=== PATIENT | male | born 1930 | race Caucasian/White ===

== ENCOUNTER 2018-08-08 07:59 | Inpatient (IN) | payer MEDICARE, MEDICAID ==
[~2018-08-08] VITALS: Ht 170.2 cm; Wt 98.9 kg
[~2018-08-08 07:59] MED LIST: AMI2 PO; APIX5TAB PO; ATOR10TA69 PO; BENA10TA10; ESCI10TA PO; FERR-43 PO; HYDR-523 PO; INSU100I19 SQ; INSU100V3 SQ; LEVO50TA8 PO; MULT-1146 PO
[2018-08-08] MEDS ORDERED: IPRATROPIUM BROMIDE (0.02%) 0.5MG/2.5ML NEB HHN STA (08:11)
[2018-08-08] MEDS ORDERED: ALBUTEROL (0.083%) 2.5MG/3ML NEB HHN STA (08:11)
[2018-08-08] MEDS ORDERED: MAGNESIUM 2 G PREMIX 50 ML IV STA (08:11)
[2018-08-08] MEDS ORDERED: METHYLPREDNISOLONE SOD SUCC 125 MG/2 ML VIAL IV STA (08:11)
[2018-08-08] MEDS ORDERED: PIPERACILLIN/TAZ 3.375G PREMIX 50 ML IV ONE (08:30)
[2018-08-08] MEDS ORDERED: VANCOMYCIN 1 G PREMIX 200 ML IV ONE (08:30)
[2018-08-08 08:45] LABS: BASOPHILS % 0.6 % (0.0-2.0); EOSINOPHILS % 3.2 % (0.0-5.0); HEMATOCRIT. 36.7 % (42.0-52.0); LYMPHOCYTES % 15.4 % (20.0-50.0); MEAN CORPUSCULAR HEMOGLOBIN 31.5 pg (28.0-32.0); MEAN CORPUSCULAR VOLUME 96.4 fL (80.0-94.0); MEAN PLATELET VOLUME 10.2 fl (7.4-10.4); MONOCYTES % 10.3 % (2.0-8.0); NEUTROPHILS % 70.5 % (40.0-76.0); PLATELET 385 x1000/uL (130-400); RED BLOOD CELL COUNT 3.81 mill/uL (4.7-6.1); RED CELL DISTRIBUTION WIDTH 13.7 % (11.6-14.6)
[2018-08-08 08:46] LABS: CHLORIDE 106 mEq/L (98-107)
[2018-08-08 08:58] LABS: D-DIMER 4.91 mg/L FEU (<0.50); PROTHROMBIN TIME 9.8 sec (9.1-11.1)
[2018-08-08] MEDS ORDERED: NITROGLYCERIN OINT 1GM/INCH UDPKT TD ONE (09:15)
[2018-08-08] MEDS ORDERED: FUROSEMIDE 40MG/4ML VIAL IVP ONE (09:15)
[2018-08-08 09:18] LABS: CLARITY URINE CLEAR (CLEAR); COLOR URINE YELLOW (YELLOW); KETONES URINE TRACE (NEGATIVE); LEUKOCYTE ESTERASE URINE NEGATIVE (NEGATIVE); NITRITE URINE NEGATIVE (NEGATIVE); OCCULT BLOOD URINE NEGATIVE (NEGATIVE); PROTEIN URINE TRACE (NEGATIVE); SPECIFIC GRAVITY URINE 1.023 (1.005-1.030)
[2018-08-08] MEDS ORDERED: CLONIDINE 0.1MG TABLET PO PRN (12:00)
[2018-08-08] MEDS ORDERED: ACETAMINOPHEN 325MG TABLET PO PRN (12:00)
[2018-08-08] MEDS ORDERED: ONDANSETRON HCL 4MG/2ML INJ IV PRN (12:00)
[2018-08-08] MEDS ORDERED: DIPHENHYDRAMINE 50MG/ML VIAL IV PRN (12:00)
[2018-08-08 12:03] LABS: BG BASE EXCESS -3.2 mmol/L (-2.0-2.0); BG BILEVEL POS AIRWAY PRESSURE 17/5; BG CARBOXYHEMOGLOBIN 0.4 % (0.5-1.5); BG DEOXYHEMOGLOBIN 1.3 % (0.0-5.0); BG FRACTION INSPIRED OXYGEN 60; BG HCO3 ACT 21.6 mmol/L (22.0-26.0); BG METHEMOGLOBIN 0.3 % (0.0-1.5); BG OXYGEN SATURATION 98.7 % (92.0-98.5); BG PCO2 37.7 mmHg (35.0-45.0); BG PH 7.376 (7.350-7.450); BG PO2 144.5 mmHg (75.0-100.0); BG SAMPLE SITE RIGHT BRACHIAL; BG TOTAL HEMOGLOBIN 12.1 g/dL (12.0-18.0); BG VENT MODE MASK - BIPAP
[2018-08-08] MEDS ORDERED: BUDESONIDE 0.5MG/2ML NEB HHN SCH (12:45)
[2018-08-08] MEDS ORDERED: IPRATROPIUM/ALBUTEROL 0.5-3(2.5)MG/3ML NEB HHN PRN (12:45)
[2018-08-08] MEDS ORDERED: PIPERACILLIN/TAZ 2.25G PREMIX 50 ML IV SCH (14:00)
[2018-08-08 15:43] LABS: CREATINE KINASE 153 IU/L (39-308)
[2018-08-08 15:44] LABS: CREATINE KINASE MB FRACTION 4.8 ng/mL (0.5-3.6)
[2018-08-08 16:57] VITALS: BP 131/63
[2018-08-08] MEDS: AMIODARONE HCL 200 MG TABLET PO SCH (17:00)
[2018-08-08 18:00] VITALS: BP 111/69
[2018-08-08] MEDS: PIPERACILLIN/TAZ 3.375G PREMIX 50 ML IV SCH (18:00)
[2018-08-08] MEDS ORDERED: DEXTROSE 50% WATER 50ML SYRINGE IV PRN (19:00)
[2018-08-08] MEDS: INSULIN LISPRO 100 UNITS/ML SUBCUT SCH ×2 (19:29→21:51)
[2018-08-08 20:00] VITALS: BP 109/58
[2018-08-08] MEDS: IPRATROPIUM/ALBUTEROL 0.5-3(2.5)MG/3ML NEB HHN SCH (20:55)
[2018-08-08] MEDS: BUDESONIDE 0.5MG/2ML NEB HHN SCH (20:55)
[2018-08-08] MEDS: BLOOD SUGAR DIAGNOSTIC STRIP TEST SCH (21:00)
[2018-08-08] MEDS ORDERED: ATORVASTATIN CALCIUM 10MG TABLET PO SCH (21:00)
[2018-08-08] MEDS ORDERED: INSULIN GLARGINE UD 100 UNITS/ML SYR SUBCUT SCH (21:00)
[2018-08-08] MEDS: FUROSEMIDE 40MG/4ML VIAL IVP SCH (21:50)
[2018-08-08] MEDS: ENOXAPARIN 30MG/0.3ML SYR SUBCUT SCH (21:50)
[2018-08-08] MEDS: NITROGLYCERIN OINT 1GM/INCH UDPKT TD SCH (21:51)
[2018-08-08] MEDS: ATORVASTATIN CALCIUM 10MG TABLET PO SCH (21:52)
[2018-08-08] MEDS: INSULIN GLARGINE UD 100 UNITS/ML SYR SUBCUT SCH (21:52)
[2018-08-08 22:00] VITALS: BP 111/68
[2018-08-08 23:26] LABS: CREATINE KINASE 208 IU/L (39-308)
[2018-08-08 23:28] LABS: CREATINE KINASE MB FRACTION 7.4 ng/mL (0.5-3.6)
[2018-08-09] VITALS (24 sets, daily range): BP systolic 94–138; BP diastolic 53–72
[2018-08-09] MEDS: IPRATROPIUM/ALBUTEROL 0.5-3(2.5)MG/3ML NEB HHN SCH ×6 (00:46→20:15)
[2018-08-09] MEDS: PIPERACILLIN/TAZ 3.375G PREMIX 50 ML IV SCH ×3 (03:57→13:15)
[2018-08-09] MEDS: NITROGLYCERIN OINT 1GM/INCH UDPKT TD SCH ×3 (06:29→21:34)
[2018-08-09] MEDS: BLOOD SUGAR DIAGNOSTIC STRIP TEST SCH ×15 (06:29→23:00)
[2018-08-09] MEDS: INSULIN LISPRO 100 UNITS/ML SUBCUT SCH (06:41)
[2018-08-09 06:55] LABS: PHOSPHORUS 4.2 mg/dL (2.5-4.9)
[2018-08-09 06:57] LABS: HEMATOCRIT. 32.8 % (42.0-52.0); HEMOGLOBIN. 10.4 g/dL (14.0-18.0); MEAN CORPUSCULAR HEMOGLOBIN 31.2 pg (28.0-32.0); MEAN CORPUSCULAR VOLUME 98.3 fL (80.0-94.0); MEAN PLATELET VOLUME 9.8 fl (7.4-10.4); PLATELET 343 x1000/uL (130-400); RED BLOOD CELL COUNT 3.34 mill/uL (4.7-6.1)
[2018-08-09] MEDS ORDERED: DEXTROSE 50% WATER 50ML SYRINGE IV PRN ×2 (07:45)
[2018-08-09] MEDS ORDERED: INSULIN LISPRO 100 UNITS/ML SUBCUT SCH (07:45)
[2018-08-09 08:07] LABS: BG BASE EXCESS -0.4 mmol/L (-2.0-2.0); BG CARBOXYHEMOGLOBIN 0.8 % (0.5-1.5); BG DEOXYHEMOGLOBIN 7.1 % (0.0-5.0); BG FRACTION INSPIRED OXYGEN 32; BG HCO3 ACT 26.6 mmol/L (22.0-26.0); BG METHEMOGLOBIN 0.3 % (0.0-1.5); BG OXYGEN SATURATION 92.8 % (92.0-98.5); BG OXYHEMOGLOBIN 91.8 % (94.0-97.0); BG PCO2 55.1 mmHg (35.0-45.0); BG PH 7.302 (7.350-7.450); BG PO2 72.8 mmHg (75.0-100.0); BG SAMPLE SITE LEFT RADIAL; BG TOTAL HEMOGLOBIN 11.4 g/dL (12.0-18.0); BG VENT MODE NASAL CANNULA
[2018-08-09] MEDS: AMIODARONE HCL 200 MG TABLET PO SCH ×2 (08:31→09:02)
[2018-08-09] MEDS: FUROSEMIDE 40MG/4ML VIAL IVP SCH ×2 (08:33→21:33)
[2018-08-09] MEDS: ENOXAPARIN 30MG/0.3ML SYR SUBCUT SCH (08:33)
[2018-08-09] MEDS: BUDESONIDE 0.5MG/2ML NEB HHN SCH ×2 (08:38→20:26)
[2018-08-09] MEDS ORDERED: FUROSEMIDE 40MG/4ML VIAL IVP SCH (09:00)
[2018-08-09] MEDS ORDERED: VANCOMYCIN 1250MG in DEXTROSE 5% WATER 250ML IV SCH (09:00)
[2018-08-09] MEDS ORDERED: INSULIN GLARGINE UD 100 UNITS/ML SYR SUBCUT SCH (09:00)
[2018-08-09] MEDS: INSULIN REGULAR (DRIP) 100 UNITS in SODIUM CHLORIDE 0.9% 99 ML IV SCH ×2 (11:13→18:57)
[2018-08-09 12:27] LABS: ETHANOL BLOOD < 10 mg/dL
[2018-08-09 12:28] LABS: *BENZODIAZEPINES SCREEN URINE NEGATIVE (NEGATIVE); *COCAINE SCREEN URINE NEGATIVE (NEGATIVE); METHADONE URINE SCREEN NEGATIVE (NEGATIVE); OPIATES URINE SCREEN NEGATIVE (NEGATIVE)
[2018-08-09 12:29] LABS: CANNABINOID URINE SCREEN NEGATIVE (NEGATIVE); PHENCYCLIDINE URINE SCREEN NEGATIVE (NEGATIVE)
[2018-08-09 12:31] LABS: *AMPHETAMINES SCREEN URINE NEGATIVE (NEGATIVE)
[2018-08-09 12:35] LABS: *BARBITURATES SCREEN URINE NEGATIVE (NEGATIVE)
[2018-08-09 13:22] LABS: FOLIC ACID (FOLATE) SERUM 18.6 ng/mL (>5.38)
[2018-08-09 14:02] LABS: PLATELET ESTIMATE NORMAL
[2018-08-09 14:13] LABS: T4 FREE 1.28 ng/dL (0.76-1.46)
[2018-08-09] MEDS: PIPERACILLIN/TAZ 2.25G PREMIX 50 ML IV SCH (17:14)
[2018-08-09] MEDS: HYDROMORPHONE HCL/PF 2MG/ML CPJ IV PRN (18:12)
[2018-08-09] MEDS: INSULIN GLARGINE UD 100 UNITS/ML SYR SUBCUT SCH (21:07)
[2018-08-09] MEDS: ATORVASTATIN CALCIUM 10MG TABLET PO SCH (21:35)
[2018-08-10] VITALS (48 sets, daily range): BP systolic 90–149; BP diastolic 49–82
[2018-08-10] MEDS: IPRATROPIUM/ALBUTEROL 0.5-3(2.5)MG/3ML NEB HHN SCH ×6 (00:26→21:01)
[2018-08-10] MEDS: PIPERACILLIN/TAZ 2.25G PREMIX 50 ML IV SCH ×4 (00:32→17:31)
[2018-08-10] MEDS: HYDROMORPHONE HCL/PF 2MG/ML CPJ IV PRN ×2 (00:33→16:35)
[2018-08-10] MEDS: BLOOD SUGAR DIAGNOSTIC STRIP TEST SCH ×11 (01:00→21:00)
[2018-08-10 05:13] LABS: BASOPHILS % 0.6 % (0.0-2.0); EOSINOPHILS % 1.9 % (0.0-5.0); HEMATOCRIT. 36.8 % (42.0-52.0); HEMOGLOBIN. 12.1 g/dL (14.0-18.0); LYMPHOCYTES % 10.1 % (20.0-50.0); MEAN CORPUSCULAR HEMOGLOBIN 31.8 pg (28.0-32.0); MEAN CORPUSCULAR VOLUME 96.4 fL (80.0-94.0); MEAN PLATELET VOLUME 10.1 fl (7.4-10.4); MONOCYTES % 10.7 % (2.0-8.0); NEUTROPHILS % 76.7 % (40.0-76.0); PLATELET 353 x1000/uL (130-400); RED BLOOD CELL COUNT 3.82 mill/uL (4.7-6.1); RED CELL DISTRIBUTION WIDTH 13.9 % (11.6-14.6)
[2018-08-10] MEDS: NITROGLYCERIN OINT 1GM/INCH UDPKT TD SCH (07:30)
[2018-08-10] MEDS ORDERED: POTASSIUM CHLORIDE 20MEQ/PACKET PO NR (07:30)
[2018-08-10] MEDS ORDERED: DEXTROSE 50% WATER 50ML SYRINGE IV PRN (08:00)
[2018-08-10] MEDS: BUDESONIDE 0.5MG/2ML NEB HHN SCH ×2 (08:35→21:02)
[2018-08-10] MEDS: AMIODARONE HCL 200 MG TABLET PO SCH ×2 (08:43→17:29)
[2018-08-10] MEDS: FUROSEMIDE 40MG/4ML VIAL IVP SCH (08:44)
[2018-08-10] MEDS ORDERED: ENOXAPARIN 40MG/0.4ML SYR SUBCUT SCH (09:00)
[2018-08-10] MEDS: INSULIN GLARGINE UD 100 UNITS/ML SYR SUBCUT SCH (09:25)
[2018-08-10] MEDS: INSULIN LISPRO 100 UNITS/ML SUBCUT SCH ×3 (12:18→21:41)
[2018-08-10] MEDS: DILTIAZEM HCL 30MG TABLET PO SCH ×2 (14:36→21:40)
[2018-08-10] MEDS: APIXABAN 2.5 MG TABLET PO SCH (17:30)
[2018-08-10] MEDS ORDERED: VANCOMYCIN 1 G PREMIX 200 ML IV SCH (21:00)
[2018-08-10] MEDS: ATORVASTATIN CALCIUM 10MG TABLET PO SCH (21:40)
[2018-08-11] VITALS (41 sets, daily range): BP systolic 67–141; BP diastolic 17–101
[2018-08-11] MEDS: IPRATROPIUM/ALBUTEROL 0.5-3(2.5)MG/3ML NEB HHN SCH ×6 (00:05→20:32)
[2018-08-11] MEDS: PIPERACILLIN/TAZ 2.25G PREMIX 50 ML IV SCH ×4 (00:55→19:41)
[2018-08-11 05:58] LABS: BASOPHILS % 0.6 % (0.0-2.0); EOSINOPHILS % 3.5 % (0.0-5.0); HEMATOCRIT. 37.6 % (42.0-52.0); HEMOGLOBIN. 12.6 g/dL (14.0-18.0); LYMPHOCYTES % 8.9 % (20.0-50.0); MEAN CORPUSCULAR HEMOGLOBIN 32.6 pg (28.0-32.0); MEAN PLATELET VOLUME 10.4 fl (7.4-10.4); MONOCYTES % 12.9 % (2.0-8.0); NEUTROPHILS % 74.1 % (40.0-76.0); PLATELET 380 x1000/uL (130-400); RED BLOOD CELL COUNT 3.87 mill/uL (4.7-6.1); RED CELL DISTRIBUTION WIDTH 13.9 % (11.6-14.6)
[2018-08-11] MEDS: LEVOTHYROXINE SODIUM 75MCG TABLET PO SCH (05:59)
[2018-08-11] MEDS: BLOOD SUGAR DIAGNOSTIC STRIP TEST SCH ×5 (06:00→22:00)
[2018-08-11] MEDS: DILTIAZEM HCL 30MG TABLET PO SCH ×3 (06:00→21:52)
[2018-08-11 06:09] LABS: PHOSPHORUS 3.3 mg/dL (2.5-4.9)
[2018-08-11] MEDS: BUDESONIDE 0.5MG/2ML NEB HHN SCH ×2 (07:45→20:32)
[2018-08-11] MEDS: INSULIN LISPRO 100 UNITS/ML SUBCUT SCH ×4 (07:49→22:12)
[2018-08-11] MEDS: AMIODARONE HCL 200 MG TABLET PO SCH ×2 (09:03→19:41)
[2018-08-11] MEDS: APIXABAN 2.5 MG TABLET PO SCH ×2 (09:03→19:40)
[2018-08-11] MEDS: HYDROMORPHONE HCL/PF 2MG/ML CPJ IV PRN ×4 (09:04→23:24)
[2018-08-11] MEDS: INSULIN GLARGINE UD 100 UNITS/ML SYR SUBCUT SCH ×2 (09:09→10:30)
[2018-08-11] MEDS ORDERED: INSULIN GLARGINE UD 100 UNITS/ML SYR SUBCUT NR (14:30)
[2018-08-11] MEDS ORDERED: INSULIN LISPRO (LOW DOSE) 100 UNITS/ML SUBCUT SCH (21:00)
[2018-08-11] MEDS: VANCOMYCIN 1 G PREMIX 200 ML IV SCH (21:52)
[2018-08-11] MEDS: ATORVASTATIN CALCIUM 10MG TABLET PO SCH (21:52)
[2018-08-12] VITALS (28 sets, daily range): BP systolic 90–131; BP diastolic 52–77
[2018-08-12] MEDS: IPRATROPIUM/ALBUTEROL 0.5-3(2.5)MG/3ML NEB HHN SCH ×6 (00:26→21:25)
[2018-08-12] MEDS: PIPERACILLIN/TAZ 2.25G PREMIX 50 ML IV SCH ×4 (01:08→17:03)
[2018-08-12 06:02] LABS: BASOPHILS % 0.8 % (0.0-2.0); EOSINOPHILS % 3.8 % (0.0-5.0); HEMATOCRIT. 36.5 % (42.0-52.0); HEMOGLOBIN. 12.2 g/dL (14.0-18.0); LYMPHOCYTES % 9.7 % (20.0-50.0); MEAN CORPUSCULAR HEMOGLOBIN 32.5 pg (28.0-32.0); MEAN CORPUSCULAR VOLUME 97.3 fL (80.0-94.0); MEAN PLATELET VOLUME 10.4 fl (7.4-10.4); MONOCYTES % 8.8 % (2.0-8.0); NEUTROPHILS % 76.9 % (40.0-76.0); PLATELET 328 x1000/uL (130-400); RED BLOOD CELL COUNT 3.75 mill/uL (4.7-6.1); RED CELL DISTRIBUTION WIDTH 13.9 % (11.6-14.6)
[2018-08-12] MEDS: BLOOD SUGAR DIAGNOSTIC STRIP TEST SCH ×3 (06:30→20:41)
[2018-08-12] MEDS ORDERED: INSULIN LISPRO (LOW DOSE) 100 UNITS/ML SUBCUT SCH (06:30)
[2018-08-12] MEDS ORDERED: INSULIN LISPRO 100 UNITS/ML SUBCUT SCH (06:30)
[2018-08-12] MEDS: DILTIAZEM HCL 30MG TABLET PO SCH ×3 (06:43→21:28)
[2018-08-12] MEDS: INSULIN LISPRO 100 UNITS/ML SUBCUT SCH ×6 (06:43→18:28)
[2018-08-12] MEDS: LEVOTHYROXINE SODIUM 75MCG TABLET PO SCH (06:43)
[2018-08-12] MEDS ORDERED: NA PHOS,M-B/NA PHOS,DI-BA ENEMA 118ML PR PRN (07:45)
[2018-08-12] MEDS ORDERED: LACTULOSE 20G/30ML UDC PO SCH (07:45)
[2018-08-12] MEDS: AMIODARONE HCL 200 MG TABLET PO SCH ×2 (08:44→17:03)
[2018-08-12] MEDS: APIXABAN 2.5 MG TABLET PO SCH ×2 (08:44→17:03)
[2018-08-12] MEDS: INSULIN GLARGINE UD 100 UNITS/ML SYR SUBCUT SCH (09:03)
[2018-08-12] MEDS: HYDROMORPHONE HCL/PF 2MG/ML CPJ IV PRN ×3 (09:31→22:28)
[2018-08-12] MEDS ORDERED: INSULIN GLARGINE UD 100 UNITS/ML SYR SUBCUT NR (21:00)
[2018-08-12] MEDS: VANCOMYCIN 1 G PREMIX 200 ML IV SCH (21:28)
[2018-08-12] MEDS: ATORVASTATIN CALCIUM 10MG TABLET PO SCH (21:28)
[2018-08-13] VITALS: BP_SYST 126; BP_DIAS 21; BP_DIAS 71
[2018-08-13] MEDS: PIPERACILLIN/TAZ 2.25G PREMIX 50 ML IV SCH ×2 (00:10→06:21)
[2018-08-13] MEDS: IPRATROPIUM/ALBUTEROL 0.5-3(2.5)MG/3ML NEB HHN SCH ×4 (00:46→12:26)
[2018-08-13 04:00] VITALS: BP 166/55
[2018-08-13] MEDS: LEVOTHYROXINE SODIUM 75MCG TABLET PO SCH (06:21)
[2018-08-13] MEDS: DILTIAZEM HCL 30MG TABLET PO SCH ×2 (06:22→14:00)
[2018-08-13] MEDS: BLOOD SUGAR DIAGNOSTIC STRIP TEST SCH ×2 (06:22→12:07)
[2018-08-13 08:00] VITALS: BP 131/69
[2018-08-13] MEDS: AMIODARONE HCL 200 MG TABLET PO SCH (09:34)
[2018-08-13] MEDS: APIXABAN 2.5 MG TABLET PO SCH (09:34)
[2018-08-13] MEDS: INSULIN LISPRO 100 UNITS/ML SUBCUT SCH ×4 (09:35→12:43)
[2018-08-13] MEDS: HYDROMORPHONE HCL/PF 2MG/ML CPJ IV PRN (09:38)
[2018-08-13] MEDS ORDERED: INSULIN GLARGINE UD 100 UNITS/ML SYR SUBCUT SCH ×2 (10:00)
[2018-08-13] MEDS ORDERED: CEPHALEXIN 250 MG/5 ML 100ML PO SCH (12:00)
[2018-08-13 12:15] VITALS: BP 128/65
[2018-08-13] MEDS ORDERED: INSU100I28 SQ (14:19)
[2018-08-13] MEDS ORDERED: MULT-1146 PO (14:21)
[2018-08-13] MEDS ORDERED: TRAM150C25 PO (14:21)
[2018-08-13] MEDS ORDERED: PROT40 PO (14:22)
[2018-08-13] MEDS ORDERED: ERGO2000 PO (14:23)
[2018-08-13 15:53] VITALS: BP 128/65
[2018-08-13 16:00] VITALS: BP 128/62
[2018-08-14] MEDS ORDERED: INSULIN GLARGINE UD 100 UNITS/ML SYR SUBCUT SCH (10:00)
== END 2018-08-13 17:35 | DRG 871 ==
LOC: ER 08:03 → 3WST 09:58 → EDBEDREQTM 10:00 → EDBEDREQ 10:00 → ENRESERV 14:20 → MICUSO 08-09 10:08 → 6WST 08-12 19:15
PROVIDERS: ADMIT Internal Medicine Nephrology; ATTEND Internal Medicine Nephrology
PROC: 5A09357 Assistance with Respiratory Ventilation, Less than 24 Consecutive Hours, Continuous Positive Airway Pressure (ICD-10-PCS; 2018-08-08)
PROC: 4A00X4Z Measurement of Central Nervous Electrical Activity, External Approach (ICD-10-PCS; principal; 2018-08-09)
PROC: 5A09357 Assistance with Respiratory Ventilation, Less than 24 Consecutive Hours, Continuous Positive Airway Pressure (ICD-10-PCS; 2018-08-09)
PROC: 5A09357 Assistance with Respiratory Ventilation, Less than 24 Consecutive Hours, Continuous Positive Airway Pressure (ICD-10-PCS; 2018-08-11)
DX: A41.9 Sepsis, unspecified organism (principal); L89.153 Pressure ulcer of sacral region, stage 3; J96.01 Acute respiratory failure with hypoxia; G92 Toxic encephalopathy; L03.116 Cellulitis of left lower limb; I13.0 Hypertensive heart and chronic kidney disease with heart failure and stage 1 through stage 4 chronic kidney disease, or unspecified chronic kidney disease; J44.1 Chronic obstructive pulmonary disease with (acute) exacerbation; E46 Unspecified protein-calorie malnutrition; N17.9 Acute kidney failure, unspecified; I48.1 Persistent atrial fibrillation; I69.354 Hemiplegia and hemiparesis following cerebral infarction affecting left non-dominant side; I69.351 Hemiplegia and hemiparesis following cerebral infarction affecting right dominant side; Z66 Do not resuscitate; N18.9 Chronic kidney disease, unspecified; F03.90 Unspecified dementia, unspecified severity, without behavioral disturbance, psychotic disturbance, mood disturbance, and anxiety; E03.9 Hypothyroidism, unspecified; E11.22 Type 2 diabetes mellitus with diabetic chronic kidney disease; L89.629 Pressure ulcer of left heel, unspecified stage; E66.9 Obesity, unspecified; E78.5 Hyperlipidemia, unspecified; E11.65 Type 2 diabetes mellitus with hyperglycemia; G47.33 Obstructive sleep apnea (adult) (pediatric); I25.10 Atherosclerotic heart disease of native coronary artery without angina pectoris; Z96.649 Presence of unspecified artificial hip joint; Z96.659 Presence of unspecified artificial knee joint; I49.5 Sick sinus syndrome; M19.90 Unspecified osteoarthritis, unspecified site; I45.10 Unspecified right bundle-branch block; I48.2 Chronic atrial fibrillation; Z79.4 Long term (current) use of insulin; Z79.01 Long term (current) use of anticoagulants; Z79.1 Long term (current) use of non-steroidal anti-inflammatories (NSAID); Z79.899 Other long term (current) drug therapy; Z68.34 Body mass index [BMI] 34.0-34.9, adult; Z95.0 Presence of cardiac pacemaker; Z95.1 Presence of aortocoronary bypass graft
CPT/HCPCS: 36415; 36600; 71045; 78580; 80048; 80061; 80202; 80305; 82140; 82375; 82550; 82553; 82607; 82746; 82805; 82962; 83036; 83605; 83735; 83880; 84100; 84145; 84439; 84443; 84481; 84484; 85379; 87804; 93005; 93306; 93970; 94640; 94660; 96365; 96366; 96375; 97162; 99291; J1170; J1650; J1815; J1940; J2543; J2930; J3370; J3475; J7040; J7050; J7060; J7611; J7620; J7626

== ENCOUNTER 2019-05-07 19:37 | Inpatient (IN) | payer MEDICARE, MEDICAID ==
[~2019-05-07] VITALS: Ht 160 cm; Wt 94.3 kg
[~2019-05-07 19:37] MED LIST changes: -BENA10TA10; +BENA10TA12; +ERGO2000 PO; -INSU100I19 SQ; +INSU100I28 SQ; +PROT40 PO; +TRAM150C25 PO
[2019-05-07] MEDS ORDERED: MORPHINE SULFATE 4 MG/ML CPJ (NOT FOR IM USE) IV ONE (21:00)
[2019-05-07 22:39] LABS: BASOPHILS % 0.8 % (0.0-2.0); EOSINOPHILS % 2.2 % (0.0-5.0); HEMATOCRIT. 38.8 % (42.0-52.0); HEMOGLOBIN. 13.2 g/dL (14.0-18.0); LYMPHOCYTES % 13.1 % (20.0-50.0); MEAN CORPUSCULAR HEMOGLOBIN 33.1 pg (28.0-32.0); MEAN PLATELET VOLUME 9.2 fl (7.4-10.4); MONOCYTES % 10.3 % (2.0-8.0); NEUTROPHILS % 73.6 % (40.0-76.0); PLATELET 193 x1000/uL (130-400); RED CELL DISTRIBUTION WIDTH 13.4 % (11.6-14.6)
[2019-05-07] MEDS ORDERED: DOCUSATE SODIUM 100MG CAPSULE PO PRN (22:45)
[2019-05-07] MEDS ORDERED: HYDROMORPHONE HCL/PF 2MG/ML CPJ IV PRN (22:45)
[2019-05-07] MEDS ORDERED: IPRATROPIUM/ALBUTEROL 0.5-3(2.5)MG/3ML NEB NEB SCH (22:45)
[2019-05-07] MEDS ORDERED: CLONIDINE 0.1MG TABLET PO PRN (22:45)
[2019-05-07 22:46] LABS: PARTIAL THROMBOPLASTIN TIME 35.5 sec (23.4-31.0); PROTHROMBIN TIME 10.6 sec (9.6-11.0)
[2019-05-08] VITALS (7 sets, daily range): BP systolic 110–141; BP diastolic 50–68
[2019-05-08] MEDS ORDERED: DEXTROSE 50% WATER 50ML SYRINGE IV PRN (01:00)
[2019-05-08] MEDS: SODIUM CHLORIDE 0.45% 1,000 ML IV SCH ×2 (01:26→17:20)
[2019-05-08] MEDS ORDERED: ATOR20TA PO (02:53)
[2019-05-08] MEDS ORDERED: DOCU-150 PO (02:53)
[2019-05-08] MEDS ORDERED: CHOL100020 PO (02:53)
[2019-05-08] MEDS ORDERED: APIX2.5T PO (02:53)
[2019-05-08] MEDS ORDERED: DILT30TA3 PO (02:53)
[2019-05-08] MEDS ORDERED: SYN150 PO (02:53)
[2019-05-08] MEDS ORDERED: INSU100I28 SQ (02:53)
[2019-05-08 06:37] LABS: CHLORIDE 107 mEq/L (98-107)
[2019-05-08 06:45] LABS: LDL CHOLESTEROL 42 mg/dL (5-100)
[2019-05-08 06:46] LABS: HDL CHOLESTEROL 49 mg/dL (40-59)
[2019-05-08] MEDS: BLOOD SUGAR DIAGNOSTIC STRIP TEST SCH ×4 (06:51→21:52)
[2019-05-08 06:56] LABS: BASOPHILS % 1.1 % (0.0-2.0); EOSINOPHILS % 3.8 % (0.0-5.0); HEMATOCRIT. 37.4 % (42.0-52.0); HEMOGLOBIN. 12.9 g/dL (14.0-18.0); LYMPHOCYTES % 16.6 % (20.0-50.0); MEAN CORPUSCULAR HEMOGLOBIN 33.5 pg (28.0-32.0); MEAN CORPUSCULAR VOLUME 97.3 fL (80.0-94.0); MEAN PLATELET VOLUME 9.9 fl (7.4-10.4); NEUTROPHILS % 67.5 % (40.0-76.0); PLATELET 189 x1000/uL (130-400); RED BLOOD CELL COUNT 3.85 mill/uL (4.7-6.1); RED CELL DISTRIBUTION WIDTH 13.2 % (11.6-14.6)
[2019-05-08] MEDS: PANTOPRAZOLE 40MG DR TABLET PO SCH (07:09)
[2019-05-08] MEDS: LEVOTHYROXINE SODIUM 50MCG TABLET PO SCH (07:09)
[2019-05-08] MEDS: INSULIN LISPRO 100 UNITS/ML SUBCUT SCH ×4 (07:10→21:57)
[2019-05-08] MEDS: IPRATROPIUM/ALBUTEROL 0.5-3(2.5)MG/3ML NEB NEB SCH ×3 (07:43→20:40)
[2019-05-08] MEDS: FERROUS SULFATE 325MG TABLET PO SCH ×3 (08:18→16:56)
[2019-05-08] MEDS ORDERED: BENAZEPRIL 10MG TABLET PO SCH (09:00)
[2019-05-08] MEDS ORDERED: AMIODARONE HCL 200 MG TABLET PO SCH (09:00)
[2019-05-08] MEDS: DILTIAZEM HCL 60MG TABLET PO SCH ×2 (12:34→21:59)
[2019-05-08] MEDS: ACETAMINOPHEN 325MG TABLET PO PRN (12:34)
[2019-05-08] MEDS: ASPIRIN 81MG EC TABLET PO SCH (12:34)
[2019-05-08 13:02] LABS: CLARITY URINE CLEAR (CLEAR); COLOR URINE YELLOW (YELLOW); KETONES URINE NEGATIVE (NEGATIVE); LEUKOCYTE ESTERASE URINE NEGATIVE (NEGATIVE); NITRITE URINE NEGATIVE (NEGATIVE); OCCULT BLOOD URINE NEGATIVE (NEGATIVE); PROTEIN URINE TRACE (NEGATIVE); SPECIFIC GRAVITY URINE 1.018 (1.005-1.030)
[2019-05-08] MEDS ORDERED: ATORVASTATIN CALCIUM 10MG TABLET PO SCH (21:00)
[2019-05-08] MEDS: ENOXAPARIN 30MG/0.3ML SYR SUBCUT SCH (21:57)
[2019-05-08] MEDS ORDERED: INSULIN GLARGINE UD 100 UNITS/ML SYR SUBCUT SCH ×2 (22:00)
[2019-05-09] VITALS: BP_SYST 103; BP_SYST 99; BP_DIAS 47; BP_DIAS 48
[2019-05-09] MEDS: IPRATROPIUM/ALBUTEROL 0.5-3(2.5)MG/3ML NEB NEB SCH ×4 (01:08→21:42)
[2019-05-09 04:00] VITALS: BP 113/54
[2019-05-09] MEDS: BLOOD SUGAR DIAGNOSTIC STRIP TEST SCH ×4 (06:23→20:41)
[2019-05-09] MEDS: ACETAMINOPHEN 325MG TABLET PO PRN (06:41)
[2019-05-09] MEDS: DILTIAZEM HCL 60MG TABLET PO SCH (06:42)
[2019-05-09] MEDS: PANTOPRAZOLE 40MG DR TABLET PO SCH (06:42)
[2019-05-09] MEDS: LEVOTHYROXINE SODIUM 50MCG TABLET PO SCH (06:42)
[2019-05-09] MEDS: INSULIN LISPRO 100 UNITS/ML SUBCUT SCH ×4 (06:47→21:32)
[2019-05-09 07:17] LABS: BASOPHILS % 1.1 % (0.0-2.0); EOSINOPHILS % 5.3 % (0.0-5.0); HEMOGLOBIN. 12.2 g/dL (14.0-18.0); LYMPHOCYTES % 12.9 % (20.0-50.0); MEAN CORPUSCULAR HEMOGLOBIN 34.2 pg (28.0-32.0); MEAN CORPUSCULAR VOLUME 98.3 fL (80.0-94.0); MEAN PLATELET VOLUME 9.7 fl (7.4-10.4); MONOCYTES % 9.4 % (2.0-8.0); NEUTROPHILS % 71.3 % (40.0-76.0); PLATELET 181 x1000/uL (130-400); RED BLOOD CELL COUNT 3.56 mill/uL (4.7-6.1); RED CELL DISTRIBUTION WIDTH 13.4 % (11.6-14.6)
[2019-05-09] MEDS: ASPIRIN 81MG EC TABLET PO SCH (10:29)
[2019-05-09] MEDS: FERROUS SULFATE 325MG TABLET PO SCH ×3 (10:29→18:05)
[2019-05-09] MEDS: ENOXAPARIN 30MG/0.3ML SYR SUBCUT SCH (10:29)
[2019-05-09] MEDS: SODIUM CHLORIDE 0.45% 1,000 ML IV SCH (10:30)
[2019-05-09 12:00] VITALS: BP 114/40
[2019-05-09 12:45] LABS: HEPATITIS B SURFACE ANTIGEN NEGATIVE
[2019-05-09] MEDS: DILTIAZEM HCL 30MG TABLET PO SCH ×2 (14:00→21:30)
[2019-05-09 16:00] VITALS: BP 131/65
[2019-05-09] MEDS: APIXABAN 5 MG TABLET PO SCH (18:04)
[2019-05-09 20:00] VITALS: BP 128/64
[2019-05-09] MEDS ORDERED: INSULIN GLARGINE UD 100 UNITS/ML SYR SUBCUT SCH (22:00)
[2019-05-10] VITALS: BP 128/62
[2019-05-10] MEDS: IPRATROPIUM/ALBUTEROL 0.5-3(2.5)MG/3ML NEB NEB SCH ×3 (01:50→14:03)
[2019-05-10] MEDS: SODIUM CHLORIDE 0.45% 1,000 ML IV SCH (01:55)
[2019-05-10 04:00] VITALS: BP 130/64
[2019-05-10] MEDS: DILTIAZEM HCL 30MG TABLET PO SCH ×3 (06:00→13:27)
[2019-05-10] MEDS: BLOOD SUGAR DIAGNOSTIC STRIP TEST SCH ×2 (06:06→11:56)
[2019-05-10] MEDS: FAMOTIDINE 20MG TABLET PO SCH ×2 (06:48→06:54)
[2019-05-10] MEDS: LEVOTHYROXINE SODIUM 150MCG TABLET PO SCH ×2 (06:49→06:54)
[2019-05-10] MEDS: INSULIN LISPRO 100 UNITS/ML SUBCUT SCH ×2 (06:50→12:07)
[2019-05-10 07:25] LABS: CHLORIDE 107 mEq/L (98-107)
[2019-05-10 07:36] LABS: HEMATOCRIT. 38.3 % (42.0-52.0); HEMOGLOBIN. 13.2 g/dL (14.0-18.0); MEAN CORPUSCULAR HEMOGLOBIN 33.5 pg (28.0-32.0); MEAN PLATELET VOLUME 9.6 fl (7.4-10.4); PLATELET 195 x1000/uL (130-400); RED BLOOD CELL COUNT 3.95 mill/uL (4.7-6.1); RED CELL DISTRIBUTION WIDTH 13.4 % (11.6-14.6)
[2019-05-10 08:00] VITALS: BP 141/54
[2019-05-10] MEDS: APIXABAN 5 MG TABLET PO SCH (09:25)
[2019-05-10] MEDS: FERROUS SULFATE 325MG TABLET PO SCH ×2 (09:25→12:06)
[2019-05-10] MEDS: ASPIRIN 81MG EC TABLET PO SCH (09:25)
[2019-05-10 10:21] LABS: PLATELET ESTIMATE NORMAL
[2019-05-10 11:40] VITALS: BP 141/54
[2019-05-10 12:00] VITALS: BP 145/69
[2019-05-10 16:00] VITALS: BP 155/75
== END 2019-05-10 18:15 | DRG 74 ==
LOC: ER 19:37 → 8WST 22:37 → EDBEDREQTM 22:41 → EDBEDREQ 22:41 → EDBEDREQSVC 23:09 → ENRESERV 23:26 → UNDODISIN 05-10 13:35
PROVIDERS: ADMIT Internal Medicine Nephrology; ATTEND Internal Medicine Nephrology
DX: G90.8 Other disorders of autonomic nervous system (principal); N17.9 Acute kidney failure, unspecified; I13.0 Hypertensive heart and chronic kidney disease with heart failure and stage 1 through stage 4 chronic kidney disease, or unspecified chronic kidney disease; I50.32 Chronic diastolic (congestive) heart failure; I25.10 Atherosclerotic heart disease of native coronary artery without angina pectoris; I48.91 Unspecified atrial fibrillation; Z79.01 Long term (current) use of anticoagulants; Z86.73 Personal history of transient ischemic attack (TIA), and cerebral infarction without residual deficits; Z96.642 Presence of left artificial hip joint; Z96.652 Presence of left artificial knee joint; E11.9 Type 2 diabetes mellitus without complications; E78.5 Hyperlipidemia, unspecified; D64.9 Anemia, unspecified; E11.22 Type 2 diabetes mellitus with diabetic chronic kidney disease; N18.9 Chronic kidney disease, unspecified; I45.10 Unspecified right bundle-branch block; F03.90 Unspecified dementia, unspecified severity, without behavioral disturbance, psychotic disturbance, mood disturbance, and anxiety; K21.9 Gastro-esophageal reflux disease without esophagitis; M19.90 Unspecified osteoarthritis, unspecified site; W05.0XXA Fall from non-moving wheelchair, initial encounter; N40.0 Benign prostatic hyperplasia without lower urinary tract symptoms; E03.9 Hypothyroidism, unspecified; Z95.0 Presence of cardiac pacemaker; Z79.4 Long term (current) use of insulin; Z79.82 Long term (current) use of aspirin; Z90.49 Acquired absence of other specified parts of digestive tract; Y93.89 Activity, other specified; Y92.128 Other place in nursing home as the place of occurrence of the external cause; Y99.8 Other external cause status
CPT/HCPCS: 36415; 71045; 72170; 72192; 73552; 73560; 76700; 80048; 80061; 80076; 81003; 82550; 82962; 83036; 83540; 83550; 84443; 84484; 86705; 87340; 92610; 93005; 93306; 93880; 93970; 94640; 96374; 97162; 97166; 99285; A6261; J1650; J1815; J2270; J7620